=== PATIENT | female | born 1940 | race Caucasian/White ===

== ENCOUNTER → 2021-06-14 12:52 | Outpatient (CLI) | payer MEDICARE, OTHER, SELFPAY ==
--- NOTE | 2021-06-14 14:43 | DIET.PN1 ---
Dietary Progress Note Assessment: 80y F attending [address] visit for help with uncontrolled DM2 in addition to emphysema, CHF, fatty liver, obesity, PTSD, and emotional eating. Pt currently enrolled in Pulmonary Rehab at and has been checking BG prior to workouts which are in the 200-300 range. Pt reports good control of her DM2 for years with A1cs in 5-7 range up until October 2019 when the global pandemic set in. Pt had not been on DM medication and stopped checking BG secondary to good control. Pt now not checking BG because the high numbers make me feel bad. Pt has attended 3 of this RDs nutrition talks at Pulmonary Rehab and has enjoyed advice, would like to continue professional relationship to better manage nutrition in order to better manage multiple comorbidities. During pandemic, pt sold home and was in process of purchasing new home in [facility], fell through at last minute so pt spent months living in hotels which did not help her nutrition plan. 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 Pt reports her mother had large garden and would buy meat straight from farm, fish from [employer], didn't allow soda or candy in house. Pt had many happy memories with food as child. Pt never enjoyed cooking, appreciated food though. Pt twice, first was not picky eater but she didn't cook as [place] with [place]. Pt lived in [facility] single for a few years and had boyfriends who liked to cook, they attended frequent dinner parties. Pts second was junito abrams, lived great life until he 20y ago. Pt had been able to maintain weight in the 140-170# range up until this point. After of spouse, pt ate to deal with emotions ending up at 260#. Pt has worked with several dietitians and nurses over the years and feels accountability is crucial for her successfully managing variety of health conditions. Ht: 5'3 Wt: 171# BMI: 30.1 UBW: hugely varied from 140-260# Nutrition Diagnosis: altered nutrition laboratory values r/t poorly managed DM2 aeb pt not checking BG because values too high, when checking in 200-300 range, pt recently gained and lost 20# secondary to intake/restriction sugar sweetened beverages, new dx fatty liver. Interventions: 1. Pt will keep food log for one week to bring to next visit Monitoring/Evaluations: f/u in 1w to continue interventions- fatty liver relationship to unmanaged DM2, meal planning Electronically Signed by: Angelique Wells 06/14/21 14:43 Clinical Dietitian [address] [address]
== END ==
PROVIDERS: PCP Student in an Organized Health Care Education/Training Program
DX: E11.65 Type 2 diabetes mellitus with hyperglycemia (principal); J43.9 Emphysema, unspecified; I50.9 Heart failure, unspecified; K76.0 Fatty (change of) liver, not elsewhere classified; E66.9 Obesity, unspecified; Z68.30 Body mass index [BMI] 30.0-30.9, adult; Z71.3 Dietary counseling and surveillance; F43.10 Post-traumatic stress disorder, unspecified
CPT/HCPCS: 97802

== ENCOUNTER → 2021-06-28 13:04 | Outpatient (CLI) | payer MEDICARE, OTHER, SELFPAY ==
--- NOTE | 2021-06-28 13:06 | DIET.PN1 ---
Dietary Progress Note 80y F [address] f/u for help with managing DM2, pulmonary emphysema, NAFLD, and weight. Weight: 175# Pt requests education on guidelines for an eating plan that can be flexible. She feels she will do best to stick to eating at a certain time of day with parameters as she eats a varied diet. Interventions: 1. Provided pt handout on carb content of foods. Instructed pt to consume 30g CHO each meal and 30g CHO total for snacks. Pt can choose two choices from each category per meal from handout. 2. Using meal plan template, set pt meal schedule to: 10am breakfast 30g cho, 350kcals, 12-2pm lunch 45g CHO, 400kcals (biggest of day), 5-6pm snack 200kcals, 30g cho, and 8pm dinner 30g cho and 350 calories. Pt will work with information for the next week and return for continued education and adjustment of meal plan. Pt would like to cover protein foods next visit. Electronically Signed by: Angelique Wells 06/28/21 13:06 Clinical Dietitian [address] [address]
[2021-06-28 13:24] VITALS: BMI 30.2
== END ==
PROVIDERS: PCP Student in an Organized Health Care Education/Training Program; Referring Provider Student in an Organized Health Care Education/Training Program; Visit Provider Student in an Organized Health Care Education/Training Program
DX: E11.9 Type 2 diabetes mellitus without complications (principal); J43.8 Other emphysema; K76.0 Fatty (change of) liver, not elsewhere classified; E66.9 Obesity, unspecified; Z68.30 Body mass index [BMI] 30.0-30.9, adult; Z71.3 Dietary counseling and surveillance
CPT/HCPCS: 97803

== ENCOUNTER 2021-07-05 14:00 | Outpatient (RCR) | payer MEDICARE, OTHER, SELFPAY | END 2021-07-05 16:00 | LOC: PUL 14:00 | PROVIDERS: Referring Provider Internal Medicine Critical Care Medicine; Visit Provider Internal Medicine Critical Care Medicine | DX: J44.9 Chronic obstructive pulmonary disease, unspecified (principal) | CPT/HCPCS: G0424 ==

== ENCOUNTER → 2021-07-24 15:58 | Outpatient (CLI) | payer MEDICARE, OTHER, SELFPAY ==
[2021-07-24 18:12] LABS: COVID19 -Nasal RAPID Negative (Negative)
== END ==
PROVIDERS: PCP Student in an Organized Health Care Education/Training Program; Referring Provider Nurse Practitioner Family; Visit Provider Nurse Practitioner Family
DX: Z20.822 Contact with and (suspected) exposure to COVID-19 (principal)
CPT/HCPCS: 87635

== ENCOUNTER → 2021-07-24 16:16 | Outpatient (CLI) | payer MEDICARE, OTHER, SELFPAY ==
--- NOTE | 2021-07-24 16:18 | DI.RAD.S_ITS ---
PROCEDURE: XR CHEST 2V INDICATIONS: cough TECHNIQUE: 2 views of the chest were acquired. COMPARISON: None. FINDINGS: Surgical changes and devices: None. Lungs and pleura: Lungs are clear. No pleural effusions or pneumothorax. Mediastinum: Mediastinal contours are normal. Heart size is normal. Bones and chest wall: No suspicious bony abnormalities. Soft tissues appear unremarkable. IMPRESSION: No acute pulmonary process. Dictated by: Lisa Pina M.D. on 07/24/2021 at 16:39 Approved by: Lisa Pina M.D. on 07/24/2021 at 16:39
== END ==
PROVIDERS: PCP Student in an Organized Health Care Education/Training Program; Referring Provider Nurse Practitioner Family; Visit Provider Nurse Practitioner Family
DX: R05.9 Cough, unspecified (principal); Z20.822 Contact with and (suspected) exposure to COVID-19
CPT/HCPCS: 71046; 87635

== ENCOUNTER → 2021-08-28 13:38 | Outpatient (CLI) | payer MEDICARE, OTHER, SELFPAY ==
--- NOTE | 2021-08-28 14:52 | DIET.OUTPTC ---
Dietary Outpatient Consultation Note Consultation Date: 08/28/2021 80[address] f/u for help with weight management in setting of DM2, emphysema, NAFLD, stable angina. Current Weight: 170# (-5# in 8w) Pt feels she is plateaued weight jones but also feels she hasn't been eating as well as before the holiday. Pt got membership to [employer] to do stationary bike but also would like to enroll in Pulmonary/Cardiac Rehab Maintenance program. Interventions: 1. Discussed eating and exercise habits when busy with interrupted schedule. Discussed focusing on ensuring non-starchy veggies are in house, good source quality protein, regular BG checks. F/U in 4w to assess progress and problem solve barriers. Electronically Signed by: Angelique Wells 08/28/21 14:52 Clinical Dietitian [address] [address]
== END ==
PROVIDERS: PCP Student in an Organized Health Care Education/Training Program; Referring Provider Student in an Organized Health Care Education/Training Program; Visit Provider Student in an Organized Health Care Education/Training Program
DX: E11.9 Type 2 diabetes mellitus without complications (principal); J43.9 Emphysema, unspecified; K76.0 Fatty (change of) liver, not elsewhere classified; I20.9 Angina pectoris, unspecified
CPT/HCPCS: 97803

== ENCOUNTER 2021-10-17 14:12 | Emergency (ER) | payer MEDICARE, OTHER, SELFPAY ==
[2021-10-17 14:17] VITALS: BP 203/82; PULSE 72; RESP 22; TEMP 36.6; O2SAT 99
--- NOTE | 2021-10-17 14:21 | DI.RAD.S_ITS ---
PROCEDURE: XR CHEST 1V INDICATIONS: chest pain TECHNIQUE: One view of the chest was acquired. COMPARISON: [facility], CR, XR CHEST 2V, 07/24/2021, 17:32. FINDINGS: Surgical changes and devices: None. Lungs and pleura: Lungs are clear. No pleural effusions or pneumothorax. Mediastinum: Mediastinal contours appear normal. Heart size is normal. Bones and chest wall: No suspicious bony lesions. Overlying soft tissues appear unremarkable. IMPRESSION: No acute cardiopulmonary pathology. Dictated by: Lavell Johnson M.D. on 10/17/2021 at 15:10 Approved by: Lavell Johnson M.D. on 10/17/2021 at 15:12
[2021-10-17 14:34] LABS: Add Manual Diff / Slide Review NO; Basophils Absolute Auto 100 /uL (0-100); Basophils Percent Auto 0.8 % (0-2); Eosinophils Absolute Auto 200 /uL (0-450); Hematocrit 43.8 % (36-46); Hemoglobin 14.7 g/dL (12.0-16.0); Lymphocytes Absolute Auto 1900 /uL (1100-4500); Lymphocytes Percent Auto 25.1 % (25-40); Mean Corpuscular HGB Conc 33.7 % (30-36); Mean Corpuscular Hemoglobin 29.5 PG (26-34); Mean Corpuscular Volume 87.8 fL (80-100); Monocytes Absolute Auto 700 /uL (0-900); Monocytes Percent Auto 8.4 % (3-14); Neutrophils Absolute Auto 4900 /uL (1500-7000); Neutrophils Percent Auto 63.7 % (50-75); Platelet Count 322 X10^3/uL (150-400); Red Blood Cell Count 4.99 X10^6/uL (4.0-5.2); Red Cell Distribution Width 13.2 % (11.6-14.8); White Blood Cell Count 7.7 X10^3/uL (4.5-11.0)
[2021-10-17 14:47] LABS: Alanine Aminotransferase 18 IU/L (<35); Albumin 4.4 g/dL (3.5-5.0); Albumin Globulin Ratio 1.4 (1.0-2.8); Alkaline Phosphatase 70 U/L (38-126); Aspartate Aminotransferase 23 IU/L (14-36); BUN Creatinine Ratio 24.1 (6-22); Bilirubin Total 0.4 mg/dL (0.2-1.3); Blood Urea Nitrogen 21 mg/dL (7-17); Carbon Dioxide 30 mmol/L (22-32); Chloride 102 mmol/L (98-107); Creatine Kinase 167 U/L (30-135); Estimated Glomerular Filt Rate > 60.0 mL/min (>60); Globulin 3.2 g/dL (1.7-4.1); Glucose 168 mg/dL (80-110); Lipase 61 U/L (23-300); Potassium 4.4 mmol/L (3.4-5.1); Sodium 137 mmol/L (137-145); Total Protein 7.6 g/dL (6.3-8.2)
[2021-10-17 14:57] LABS: Troponin I < 0.012 ng/mL (0.01-0.034)
[2021-10-17 15:01] LABS: CKMB % Relative Index 1.6 % (1.5-5.0); Creatine Kinase MB 2.72 ng/mL (<2.37); HEMOLYSIS 18 (0-50)
--- NOTE | 2021-10-17 16:56 | ED_ITS ---
HPI - General Adult <Kellie Kasper PA-C - Last Filed: 10/17/21 20:07> General Chief complaint: Hypertension Stated complaint: Pain lower ext. Dizzy, Difficulty breathing. HX of Time Seen by Provider: 10/17/21 16:48 Source: patient Mode of arrival: Ambulatory History of Present Illness HPI narrative: 81-year-old female medical history diabetes, emphysema, CAD, positional vertigo presents to the ED with dizziness and right lower leg pain. Patient states that her symptoms have resolved since she came into the ED with no intervention. Patient was seen in the walk-in clinic earlier today, sent down to the ED to e valuate her symptoms, blood pressure that was elevated to systolic 200. In the ED, patient's blood pressure was a systolic 180s, patient endorses that she has not taken her meds today for hypertension. Patient denies fever, chills, chest pain, shortness of breath, cough, nausea, vomiting, abdominal pain, flank pain, lightheadedness, syncope. Patient has some chronic leg problems that cause pain . Patient states that this morning her right leg pain was worse than normal, but has come back to baseline in the ED. Related Data Previous Rx's Medication Instructions Recorded benzonatate 100 mg capsule 100 mg PO BID PRN #20 cap 07/24/21 Allergies Allergy/AdvReac Type Severity Reaction Status Date / Time Penicillins Allergy Unknown Verified 10/17/21 14:09 prednisone Allergy Unknown Verified 10/17/21 14:09 Review of Systems <Kellie Kasper PA-C - Last Filed: 10/17/21 20:07> Review of Systems ROS Unobtainable: All systems reviewed & are unremarkable except as noted in HPI and below Constitutional Constitutional: Denies chills, Denies fatigue, Denies fever(s), Denies frequent falls, Denies lethargy and Denies weakness Eyes Eyes: Denies change in vision, Denies eye discharge, Denies irritation and Denies loss of vision ENT Ears, Nose, Mouth, and Throat: Denies change in voice, Reports dizziness, Denies neck pain, Denies sore throat and Denies throat swelling Cardiovascular Cardiovascular: Denies chest pain, Denies irregular heart rhythm, Denies lightheadedness, Denies palpitations, Denies dyspnea, Denies dyspnea on exertion and Denies orthopnea Respiratory Respiratory: Denies cough, Denies dyspnea, Denies dyspnea on exertion and Denies wheezing Gastrointestinal Gastrointestinal: Denies abdominal pain, Denies change in bowel habits, Denies diarrhea, Denies nausea and Denies vomiting Genitourinary Genitourinary: Denies hematuria, Denies flank pain, Denies urinary incontinence and Denies urinary urgency Musculoskeletal Musculoskeletal: Denies back pain, Denies muscle weakness, Denies neck pain, Denies numbness and Denies tingling Comments: Right lower leg pain Integumentary/Breasts Skin/Breast: Denies pruritus, Denies erythema, Denies rash and Denies wounds Neurologic Neurologic: Denies behavioral changes, Denies confusion, Reports dizziness, Denies frequent falls, Denies loss of vision, Denies numbness, Denies tingling and Denies weakness Psychiatric Psychiatric: Denies anxiety, Denies behavioral changes, Denies confusion, Denies depression, Denies homicidal ideation and Denies suicidal ideation Endocrine Endocrine: Denies fatigue, Denies flushing and Denies palpitations Hematologic/Lymphatic Hematologic/Lymphatic: Denies easy bruising Allergic/Immunologic Allergic/Immunologic: Denies urticaria, Denies throat swelling and Denies wheezing Patient History <Kellie Kasper PA-C - Last Filed: 10/17/21 20:07> Social History Smoking Status: Former smoker Smoking Status: Former smoker Exam <Kellie Kasper PA-C - Last Filed: 10/17/21 20:07> Initial Vital Signs Initial Vital Signs: Vital Signs Temperature 97.8 F 10/17/21 14:17 Pulse Rate 72 10/17/21 14:17 Respiratory Rate 22 10/17/21 14:17 Blood Pressure 203/82 H 10/17/21 14:17 Pulse Oximetry 99 10/17/21 14:17 Const General: cooperative, healthy appearing and comfortable [facility] Head: normal to inspection Eyes General: appearance normal, both eyes and all related structures Neck Neck: normal visual inspection Chest Chest: normal inspection of the chest Resp Effort & Inspection: normal respiratory effort Auscultation: clear to auscultation bilaterally Cardio Rate: regular rate Rhythm: regular rhythm GI Other: Abdomen is soft, nondistended, nontender to palpation. No CVA tenderness. General: No CVA tenderness Skin General: no rashes or lesions noted Neuro General: patient alert, patient awake and patient oriented x3 Extrem Other: No swelling, erythema, tenderness to palpation. Full range of motion. Strength and sensation intact. Neurovascularly intact. Compartments soft. Psych Appearance: grossly normal Mental Status: mental status grossly normal <Fe Tierney DO - Last Filed: 10/18/21 07:51> Initial Vital Signs Initial Vital Signs: Vital Signs Temperature 97.8 F 10/17/21 14:17 Pulse Rate 72 10/17/21 14:17 Respiratory Rate 22 10/17/21 14:17 Blood Pressure 203/82 H 10/17/21 14:17 Pulse Oximetry 99 10/17/21 14:17 Course <MARCIANO Gibson Last Filed: 10/17/21 20:07> Orders Ordered: ED Orders 10/17/21 14:20 Complete Blood Count AUTO DIFF Stat Comprehensive Metabolic Panel Stat Lipase Stat Magnesium Stat Troponin & CK Cardiac Panel Stat 10/17/21 14:21 XR chest 1V Stat 10/17/21 17:06 EKG-12 Lead Stat Vital Signs Vital signs: Vital Signs - 8 hr 10/17/21 14:17 10/17/21 17:48 Temperature 97.8 F Pulse Rate 72 78 Respiratory Rate 22 18 Blood Pressure 203/82 H 186/74 H Pulse Oximetry 99 99 <DO January Gonzalez Last Filed: 10/18/21 07:51> Orders Ordered: ED Orders 10/17/21 14:20 Complete Blood Count AUTO DIFF Stat Comprehensive Metabolic Panel Stat Lipase Stat Magnesium Stat Troponin & CK Cardiac Panel Stat 10/17/21 14:21 XR chest 1V Stat 10/17/21 17:06 EKG-12 Lead Stat Vital Signs Vital signs: Vital Signs - 8 hr 10/17/21 14:17 10/17/21 17:48 Temperature 97.8 F Pulse Rate 72 78 Respiratory Rate 22 18 Blood Pressure 203/82 H 186/74 H Pulse Oximetry 99 99 Medical Decision Making <MARCIANO Gibson Last Filed: 10/17/21 20:07> Lab Data Lab results narrative: Labs within normal limits. Result diagrams: 10/17/21 14:20 10/17/21 14:20 Labs: Lab Results 10/17/21 10/17/21 Range/Units 14:20 14:20 WBC 7.7 (4.5-11.0) X10^3/uL RBC 4.99 (4.0-5.2) X10^6/uL Hgb 14.7 (12.0-16.0) g/dL Hct 43.8 (36-46) % MCV 87.8 (80-100) fL MCH 29.5 (26-34) PG MCHC 33.7 (30-36) % RDW 13.2 (11.6-14.8) % Plt Count 322 (150-400) X10^3/uL Neut % (Auto) 63.7 (50-75) % Lymph % (Auto) 25.1 (25-40) % [place] % (Auto) 8.4 (3-14) % Eos % (Auto) 2.0 (2-4) % Baso % (Auto) 0.8 (0-2) % Neut # (Auto) 4900 (7738-6781) /uL Lymph # (Auto) 1900 (9978-5249) /uL [place] # (Auto) 700 (0-900) /uL Eos # (Auto) 200 (0-450) /uL Baso # (Auto) 100 (0-100) /uL Sodium 137 (137-145) mmol/L Potassium 4.4 (3.4-5.1) mmol/L Chloride 102 (98-107) mmol/L Carbon Dioxide 30 (22-32) mmol/L BUN 21 H (7-17) mg/dL Creatinine 0.87 (0.52-1.04) mg/dL Estimated GFR > 60.0 (>60) mL/min BUN/Creatinine Ratio 24.1 H (6-22) Glucose 168 H (80-110) mg/dL Calcium 9.0 (8.4-10.2) mg/dL Magnesium 2.0 (1.6-2.3) mg/dL Total Bilirubin 0.4 (0.2-1.3) mg/dL AST 23 (14-36) IU/L ALT 18 (<35) IU/L Alkaline Phosphatase 70 (38-126) U/L Total Creatine Kinase 167 H (30-135) U/L CK-MB (CK-2) 2.72 H (<2.37) ng/mL CK-MB (CK-2) Rel Index 1.6 (1.5-5.0) % Troponin I < 0.012 (0.01-0.034) ng/mL Total Protein 7.6 (6.3-8.2) g/dL Albumin 4.4 (3.5-5.0) g/dL Globulin 3.2 (1.7-4.1) g/dL Albumin/Globulin Ratio 1.4 (1.0-2.8) Lipase 61 (23-300) U/L Imaging Data Chest x-ray: Radiologist's Impression: PROCEDURE:? XR CHEST 1V ? INDICATIONS:? chest pain ? TECHNIQUE:? One view of the chest was acquired.? ? COMPARISON:? [facility], CR, XR CHEST 2V, 07/24/2021, 17:32. ? FINDINGS:? ? Surgical changes and devices:? None.? ? Lungs and pleura:? Lungs are clear.? No pleural effusions or pneumothorax.? ? Mediastinum:? Mediastinal contours appear normal.? Heart size is normal.? ? Bones and chest wall:? No suspicious bony lesions.? Overlying soft tissues appear unremarkable.? ? IMPRESSION:? No acute cardiopulmonary pathology. ? ? Dictated by: Lavell Johnson M.D. on 10/17/2021 at 15:10 ? ? Approved by: Lavell Johnson M.D. on 10/17/2021 at 15:12 ? ECG Data Interpretation: Normal sinus rhythm, nonspecific ST-T abnormality, no axis deviation MDM Narrative Medical decision making narrative: 81-year-old female medical history diabetes, emphysema, CAD, positional vertigo presents to the ED with dizziness and right lower leg pain. Concern for ACS versus some electrolyte abnormalities versus dehydration. Will obtain EKG, c hest x-ray, labs, troponin. Workup with no acute findings. Patient counseled on ED return precautions. Patient verbalized understanding. <Fe Tierney, DO - Last Filed: 10/18/21 07:51> Lab Data Labs: Lab Results 10/17/21 10/17/21 Range/Units 14:20 14:20 WBC 7.7 (4.5-11.0) X10^3/uL RBC 4.99 (4.0-5.2) X10^6/uL Hgb 14.7 (12.0-16.0) g/dL Hct 43.8 (36-46) % MCV 87.8 (80-100) fL MCH 29.5 (26-34) PG MCHC 33.7 (30-36) % RDW 13.2 (11.6-14.8) % Plt Count 322 (150-400) X10^3/uL Neut % (Auto) 63.7 (50-75) % Lymph % (Auto) 25.1 (25-40) % [place] % (Auto) 8.4 (3-14) % Eos % (Auto) 2.0 (2-4) % Baso % (Auto) 0.8 (0-2) % Neut # (Auto) 4900 (9931-8356) /uL Lymph # (Auto) 1900 (3164-2470) /uL [place] # (Auto) 700 (0-900) /uL Eos # (Auto) 200 (0-450) /uL Baso # (Auto) 100 (0-100) /uL Sodium 137 (137-145) mmol/L Potassium 4.4 (3.4-5.1) mmol/L Chloride 102 (98-107) mmol/L Carbon Dioxide 30 (22-32) mmol/L BUN 21 H (7-17) mg/dL Creatinine 0.87 (0.52-1.04) mg/dL Estimated GFR > 60.0 (>60) mL/min BUN/Creatinine Ratio 24.1 H (6-22) Glucose 168 H (80-110) mg/dL Calcium 9.0 (8.4-10.2) mg/dL Magnesium 2.0 (1.6-2.3) mg/dL Total Bilirubin 0.4 (0.2-1.3) mg/dL AST 23 (14-36) IU/L ALT 18 (<35) IU/L Alkaline Phosphatase 70 (38-126) U/L Total Creatine Kinase 167 H (30-135) U/L CK-MB (CK-2) 2.72 H (<2.37) ng/mL CK-MB (CK-2) Rel Index 1.6 (1.5-5.0) % Troponin I < 0.012 (0.01-0.034) ng/mL Total Protein 7.6 (6.3-8.2) g/dL Albumin 4.4 (3.5-5.0) g/dL Globulin 3.2 (1.7-4.1) g/dL Albumin/Globulin Ratio 1.4 (1.0-2.8) Lipase 61 (23-300) U/L ECG Data Interpretation: Normal sinus rhythm, nonspecific ST-T abnormality, no axis deviation Ericnick-normal sinus rhythm rate 73 TX interval 150 QTC 458, no priors compare right shoulder EUA V1 V2 [address] or no ST elevation Discharge Plan Departure Patient Disposition: Home Clinical Impression: Dizziness Instructions: Vertigo Activity Restrictions/Additional Instructions: You were evaluated in the ED today for leg pain and dizziness. Your symptoms already resolved when you came into the ED. Your labs, chest x-ray, EKG were normal. Return to the ED if you have worsening symptoms, chest pain, shortness of breath, dizziness. Prescriptions: No Action benzonatate 100 mg capsule 100 mg PO BID PRN (Reason: cough) Qty: 20 0RF Referrals: Melvin Cohen MD [Primary Care Provider] -
[2021-10-17 17:48] VITALS: BP 186/74; PULSE 78; RESP 18; O2SAT 99
== END 2021-10-17 17:54 | disposition home or self-care (01) ==
PROVIDERS: Emergency Medicine; Emergency Provider Student in an Organized Health Care Education/Training Program; PCP Student in an Organized Health Care Education/Training Program
DX: R42 Dizziness and giddiness (principal); M79.604 Pain in right leg; R03.0 Elevated blood-pressure reading, without diagnosis of hypertension
CPT/HCPCS: 36415; 71045; 80053; 82550; 82553; 83690; 83735; 84484; 85025; 93005; 99283; 99284

== ENCOUNTER → 2021-12-26 13:09 | Outpatient (CLI) | payer MEDICARE, OTHER, SELFPAY ==
--- NOTE | 2021-12-28 10:25 | DIET.PN1 ---
Dietary Progress Note 81y F attending [address] f/u for weight check. Pt 168# maintaining <170# but would like to get down to 150#. Electronically Signed by: Angelique Wells 12/28/21 10:25 Clinical Dietitian [address] [address]
== END ==
PROVIDERS: PCP Student in an Organized Health Care Education/Training Program; Referring Provider Student in an Organized Health Care Education/Training Program; Visit Provider Student in an Organized Health Care Education/Training Program
DX: Z71.3 Dietary counseling and surveillance (principal)
CPT/HCPCS: 97803

== ENCOUNTER → 2022-01-09 13:01 | Outpatient (CLI) | payer MEDICARE, OTHER, SELFPAY ==
--- NOTE | 2022-01-09 17:58 | DIET.PN1 ---
Dietary Progress Note 81[address] f/u for DM2 and weight check. Pt 168#. Pt happy with progress thus far. She feels the increased dietary fiber in her diet is causing her to feel satiated leading to lower total kcal intake. Pt has stressful court case coming up in mid-January. Pt would often abandon diets or overeat related to stress, but feels current eating plan is flexible enough that she does not feel the need to stop following it and has little interest in overconsuming sweets. Pt no longer taking Jardiance secondary to side effects of leg cramping. Pt scheduled to get bloodwork done later this week to assess whether needs different DM2 medication or if her recent weight loss and dietary control keeps her in healthy BG range. f/u for weight check x2w. Electronically Signed by: Angelique Wells 01/09/22 17:58 Clinical Dietitian [address] [address]
== END ==
PROVIDERS: PCP Student in an Organized Health Care Education/Training Program; Referring Provider Student in an Organized Health Care Education/Training Program; Visit Provider Student in an Organized Health Care Education/Training Program
DX: E11.9 Type 2 diabetes mellitus without complications (principal); Z71.3 Dietary counseling and surveillance
CPT/HCPCS: 97803

== ENCOUNTER → 2022-01-30 12:51 | Outpatient (CLI) | payer MEDICARE, OTHER, SELFPAY ==
--- NOTE | 2022-01-31 09:21 | DIET.OUTPTC ---
Dietary Outpatient Consultation Note Consultation Date: 01/30/2022 81[address] f/u for weight check and continuing education on DM2. Pt continues to deal with stress of upcoming court case, PTSD is being triggered. Pt had previously ate out frequently or increased consumption sweetened desserts. Pt not doing this currently secondary to accountability c RD visits. Pt staying focused on high fiber diet. Pt has A1c check this week, worried about numbers since going off Jardiance. Pt weight 169#. Electronically Signed by: Angelique Wells 01/31/22 09:21 Clinical Dietitian [address] [address]
== END ==
PROVIDERS: PCP Student in an Organized Health Care Education/Training Program; Referring Provider Student in an Organized Health Care Education/Training Program; Visit Provider Student in an Organized Health Care Education/Training Program
DX: E11.9 Type 2 diabetes mellitus without complications (principal); F43.10 Post-traumatic stress disorder, unspecified; Z71.3 Dietary counseling and surveillance
CPT/HCPCS: 97803

== ENCOUNTER → 2022-02-06 12:56 | Outpatient (CLI) | payer MEDICARE, OTHER, SELFPAY ==
--- NOTE | 2022-02-06 13:06 | DIET.OUTPTC ---
Dietary Outpatient Consultation Note Consultation Date: 02/06/2022 A1c 7.0! Pt not taking any medications for DM2, A1c came back 7.0 Pt down to 166#, aiming for 150-160# to try to maintain. Pt very happy today, she feels her current routine is achievable and maintainable. Pt would like to continue coming weekly for weight checks and accountability. Electronically Signed by: Angelique Wells 02/06/22 13:06 Clinical Dietitian [address] [address]
== END ==
PROVIDERS: PCP Student in an Organized Health Care Education/Training Program; Referring Provider Student in an Organized Health Care Education/Training Program; Visit Provider Student in an Organized Health Care Education/Training Program
DX: E11.9 Type 2 diabetes mellitus without complications (principal); Z71.3 Dietary counseling and surveillance
CPT/HCPCS: 97803

== ENCOUNTER → 2022-02-27 12:55 | Outpatient (CLI) | payer MEDICARE, OTHER, SELFPAY ==
--- NOTE | 2022-02-27 13:42 | DIET.OUTPTC ---
Dietary Outpatient Consultation Note Consultation Date: 02/27/2022 81[address] attending [address] f/u for DM2 and weight monitoring. Pt had respiratory exacerbation, possibly covid (didn't test) two weeks ago. Pt feeling better now, relieved since she has severe emphysema. Weight: 167# A1c 7.1 without medication Electronically Signed by: Angelique Wells 02/27/22 13:42 Clinical Dietitian [address] [address]
== END ==
PROVIDERS: PCP Student in an Organized Health Care Education/Training Program; Referring Provider Student in an Organized Health Care Education/Training Program; Visit Provider Student in an Organized Health Care Education/Training Program
DX: E11.9 Type 2 diabetes mellitus without complications (principal); Z71.3 Dietary counseling and surveillance
CPT/HCPCS: 97803

== ENCOUNTER → 2022-03-06 12:45 | Outpatient (CLI) | payer MEDICARE, OTHER, SELFPAY ==
--- NOTE | 2022-03-06 15:25 | DIET.OUTPTC ---
Dietary Outpatient Consultation Note Consultation Date: 03/06/2022 Pt here for weight check: 169# Pt brought in labs. A1c 7.1 (down from 8s), pts lipids remain quite elevated, however, lower than her normal over the past 3y. TGs in 300s, LDL 180, HDL improved from 30s to 40s. Reinforced pts work c weight loss, higher fiber diet, and reducing saturated fats. Recc pt speak further c PCP on medication management for elevated lipids. Electronically Signed by: Angelique Wells 03/06/22 15:25 Clinical Dietitian [address] [address]
== END ==
PROVIDERS: PCP Student in an Organized Health Care Education/Training Program; Referring Provider Student in an Organized Health Care Education/Training Program; Visit Provider Student in an Organized Health Care Education/Training Program
DX: E78.5 Hyperlipidemia, unspecified (principal); Z71.3 Dietary counseling and surveillance
CPT/HCPCS: 97803